=== PATIENT | male | born 1955 | race Caucasian/White ===

== ENCOUNTER 2021-09-28 09:28 | Outpatient (CLI) | payer MEDICARE | END 2021-09-28 09:29 | disposition home or self-care (01) | LOC: MRI 09:28 | PROVIDERS: ATTEND Internal Medicine Hematology & Oncology | DX: M54.2 Cervicalgia (principal); C7A.090 Malignant carcinoid tumor of the bronchus and lung; R51.9 Headache, unspecified | CPT/HCPCS: 70553; 72156; 82565 ==

== ENCOUNTER 2021-10-06 12:20 | Outpatient (CLI) | payer MEDICARE | END 2021-10-06 12:21 | disposition home or self-care (01) | LOC: NM 12:20 | PROVIDERS: ATTEND Internal Medicine Hematology & Oncology | DX: C7B.8 Other secondary neuroendocrine tumors (principal) | CPT/HCPCS: 78802; 78803; A4641; A9572 ==

== ENCOUNTER 2021-12-14 10:15 | Outpatient (CLI) | payer MEDICARE | END 2021-12-14 10:16 | disposition home or self-care (01) | LOC: PET 10:15 | PROVIDERS: ATTEND Internal Medicine Hematology & Oncology | DX: C7A.8 Other malignant neuroendocrine tumors (principal); C79.51 Secondary malignant neoplasm of bone; R91.1 Solitary pulmonary nodule; M89.9 Disorder of bone, unspecified | CPT/HCPCS: 78815; A9552 ==